=== PATIENT | female | born 1995 | race Caucasian/White ===

== ENCOUNTER 2017-04-28 19:01 | Emergency (ER) | payer OTHER | END 2017-04-28 22:50 | disposition home or self-care (01) | LOC: FTE 19:01 | DX: L53.9 Erythematous condition, unspecified (principal); E03.9 Hypothyroidism, unspecified | CPT/HCPCS: 99283; Z7502 ==

== ENCOUNTER 2017-06-07 17:12 | Emergency (ER) | payer OTHER ==
[2017-06-07] MEDS: KETOROLAC 60 MG INJ IM (19:01)
[2017-06-07] MEDS: morphine 4 MG/ML VIAL IM (19:02)
== END 2017-06-07 19:19 | disposition home or self-care (01) ==
LOC: FTE 17:12
DX: J02.0 Streptococcal pharyngitis (principal); E03.9 Hypothyroidism, unspecified
CPT/HCPCS: 81025; 96372; 99284-25

== ENCOUNTER 2017-08-19 10:06 | Emergency (ER) | payer OTHER ==
[2017-08-19] MEDS: ACETAMINOPHEN 325 MG TAB PO (10:51)
== END 2017-08-19 11:43 | disposition home or self-care (01) ==
LOC: FTE 10:06
DX: J02.0 Streptococcal pharyngitis (principal); R07.9 Chest pain, unspecified
CPT/HCPCS: 71045; 87880; 93005; 99284-25

== ENCOUNTER 2017-08-21 14:28 | Emergency (ER) | payer OTHER ==
[2017-08-21] MEDS: DEXAMETHASONE 10 MG/ML 1 ML INJ IM (16:48)
== END 2017-08-21 17:09 | disposition home or self-care (01) ==
LOC: FTE 14:28
DX: I88.9 Nonspecific lymphadenitis, unspecified (principal); E03.9 Hypothyroidism, unspecified
CPT/HCPCS: 96372; 99284-25

== ENCOUNTER 2017-11-22 06:06 | Emergency (ER) | payer OTHER ==
[2017-11-22] MEDS: IBUPROFEN 600 MG TAB PO (06:34)
[2017-11-22] MEDS: ACETAMINOPHEN 500 MG TAB PO (06:35)
== END 2017-11-22 07:09 | disposition home or self-care (01) ==
LOC: FTE 06:06
DX: J03.90 Acute tonsillitis, unspecified (principal); E03.9 Hypothyroidism, unspecified
CPT/HCPCS: 99283; Z7502

== ENCOUNTER 2018-07-06 09:34 | Emergency (ER) | payer OTHER ==
[2018-07-06] MEDS: DIPHENHYDRAMINE 25 MG CAP PO (09:55)
== END 2018-07-06 10:10 | disposition home or self-care (01) ==
LOC: FTE 09:34
DX: S81.852A Open bite, left lower leg, initial encounter (principal); S71.151A Open bite, right thigh, initial encounter; E03.9 Hypothyroidism, unspecified; I10 Essential (primary) hypertension; W57.XXXA Bitten or stung by nonvenomous insect and other nonvenomous arthropods, initial encounter; Y92.9 Unspecified place or not applicable
CPT/HCPCS: 99283; Z7502